=== PATIENT | female | born 1995 | race American Indian/Alaskan Native ===

== ENCOUNTER 2025-07-26 20:23 | Emergency (ER) | payer SELFPAY ==
[~2025-07-26] VITALS: Ht 165.1 cm; Wt 95.3 kg
[2025-07-26 20:38] VITALS: TEMP 99.2
[2025-07-26] MEDS ORDERED: ONDANSETRON HCL INJ 2MG/ML 2ML 2 MG/ML VIAL IV STA (20:45)
[2025-07-26 21:04] LABS: BASOPHILS % 0.3 % (0.0-1.0); EOSINOPHILS % 1.4 % (0.0-6.0); LYMPHOCYTES % 26.6 % (18.0-39.1); MONOCYTES % 4.8 % (4.4-11.3); NEUTROPHILS % 66.6 % (38.7-80.0); RED CELL DISTRIBUTION WIDTH 16.1 % (11.7-14.4)
[2025-07-26 21:06] LABS: LEUKOCYTE ESTERASE ,URINE TRACE (NEGATIVE); PROTEIN,URINE DIPSTICK NEGATIVE (NEGATIVE); URINE UROBILINOGEN 0.2 mg/dL (0.2 - 1)
[2025-07-26 21:19] LABS: CORONAVIRUS COVID-19 AG NEGATIVE (NEGATIVE)
[2025-07-26 21:20] LABS: EPITHELIAL CELLS,URINE MANY /LPF; WBC,URINE (MAN) 0-5 /HPF (0-5)
[2025-07-26 21:27] LABS: EST GLOMERULAR FILTRATION RATE 125 ML/MIN (>=60)
[2025-07-26] MEDS: SODIUM CHLORIDE 0.9% 1000ML 1,000 ML IV ONE (22:09)
[2025-07-26] MEDS: METOCLOPRAMIDE HCL 10 MG/2ML VIAL IV ONE (22:09)
[2025-07-26] MEDS ORDERED: REGLAN10 MG PO (22:20)
[2025-07-26 22:50] VITALS: PULSE 82; RESP 16; O2SAT 100
== END 2025-07-26 22:51 | disposition home or self-care (01) ==
LOC: ER 20:39
DX: R11.2 Nausea with vomiting, unspecified (principal); Z33.1 Pregnant state, incidental
CPT/HCPCS: 36415; 80053; 81001; 83690; 84702; 85025; 87426; 99284; J2765; J7030